=== PATIENT | male | born 1955 | race Caucasian/White ===

== ENCOUNTER 2024-12-26 09:29 | Outpatient (CLI) | payer MEDICARE, SELFPAY ==
--- OUTSIDE RECORDS SUMMARY | 2024-12-26 09:33 | XMS_ITS | Clinical Summary ---
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 90 tablet 3 10/01/19 Active gabapentin (NEURONTIN) 300 MG capsuleIndications :Type 2 diabetes mellitus without complication, without long-term current use of insulin ([facility]) TAKE 1 CAPSULE BY MOUTH ONCE DAILY IN THE EVENING 90 capsule 02/20/20 Active atorvastatin (LIPITOR) 40 MG tabletIndications: Hyperlipidemia, unspecified hyperlipidemia type Take 1 tablet (40 mg total) by mouth nightly at bedtime. at bedtime 90 tablet 3 11/18/19 Active Additional Information Patient not taking.Reported on 05/16/2023 metFORMIN (GLUCOPHAGE) 850 MG tabletIndications: Type 2 diabetes mellitus without complication, without long-term current use of insulin ([facility]) Take 1 tablet (850 mg total) by mouth 2 (two) times daily with meals. 180 tablet 3 11/18/19 Active metoprolol tartrate (LOPRESSOR) 25 MG tabletIndications: Primary hypertension Take 1 tablet (25 mg total) by mouth 2 (two) times daily. 180 tablet 3 11/18/19 Active omeprazole (PRILOSEC) 20 MG capsuleIndications :Gastroesophageal reflux disease, unspecified whether esophagitis present Take 1 capsule (20 mg total) by mouth daily. 90 capsule 3 11/18/19 Active lisinopril (PRINIVIL) 20 MG tabletIndications: Primary hypertension TAKE 2 TABLETS BY MOUTH DAILY 180 tablet 04/10/20 Active Additional Information Patient not taking.Reported on 05/16/2023 Dapagliflozin Propanediol (FARXIGA) 5 MG TabIndications:Typ e 2 diabetes mellitus without complication, without long-term current use of insulin ([facility]) Take 1 tablet by mouth daily. 90 tablet 1 05/16/20 Active Active Problems Problem Noted Date Diagnosed Date Gastroesophageal reflux dise ase, unspecified whether esophagitis present 05/03/2022 Noncompliance 09/30/2021 Osteoarthritis of both knees 02/11/2021 Multiple food allergies 02/11/2021 Degenerative disc disease, thoracic 02/11/2021 Hyperlipidemia, unspecified hyperlipidemia type 02/11/2021 Overview (05/16/2023): Quit statin Primary hypertension 02/11/2021 Type 2 diabetes mellitus wit hout complication, without long-term current use of insulin ([facility]) 02/11/2021 Overview (05/16/2023): Stopped statin and TORITO Obesity, unspecified classif ication, unspecified obesity type, unspecified whether serious comorbidity present 02/11/2021 Resolved Problems Problem Noted Date Diagnosed Date Resolved Date Preventative health care 05/03/202204/2022 Screening for prostate cancer 05/03/2022 05/08/2022 Preventative health care 02/11/2021 Screening for prostate cancer 02/11/2021 05/21/2023 Immunizations Immunization Administration Dates Next Due Influenza (Generic) 04/03/2016 PFIZER COVID-19 (ORIGINAL FO RMULATION, PURPLE CAP) mRNA, LNP-S, PF, 30 MCG/0.3 ML DOSE 06/25/2020,06/04/2020 Pneumococcal (Prevnar 13) 03/06/2021 Pneumovax 23 25 Mcg/0.5Ml Ij Inj 01/02/2017 Tdap (Generic) 04/03/2016 Family History Medical History Relation Comments MS Mother Relation Status Comments Mother Social History Tobacco Use Types Packs/Day Years Used Date Smoking Tobacco: Former Cigarettes Smokeless Tobacco: Never Alcohol Use Standard Drinks/Week Comments Yes 0 (1 standard drink = 0.6 oz pur e alcohol) 6pk a week PHQ-2 Answer Date Recorded Patient Health Questionnaire-2 Score 0 05/16/2023 Sex and Gender Information Value Date Recorded Sex Assigned at Not on file Legal Sex Male 7:11 PM CDT Gender Identity Not on file Sexual Orientation Not on file 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 [place] Not on file Not on file Not on file Last Filed Vital Signs Vital Sign Reading Time Taken Comments Blood Pressure 162/84 05/16/2023 3:03 PM ROLL ICER MACHINE Pulse 66 05/03/2022 2:41 PM ROLL ICER MACHINE Temperature - - Respiratory Rate - - Oxygen Saturation - - Inhaled Oxygen Concentration - - Weight 93 kg (205 lb) 05/16/2023 3:03 PM ROLL ICER MACHINE Height 174 cm (5' 8.5) 05/16/2023 3:03 PM ROLL ICER MACHINE Body Mass Index 30.72 05/16/2023 3:03 PM ROLL ICER MACHINE Plan of Treatment Health Maintenance Due Date Last Done Comments Colorectal Cancer Screening Colonoscopy (10 Years) 1955 Kidney Health Evaluation 1955 Diabetes: Retinopathy Eye Exam 09/26/1973 Hepatitis C 09/26/1973 Zoster Vaccines (1 of 2) 09/26/2005 Annual Medicare Wellness Visit 02/12/2022 02/11/2021 Hemoglobin A1C 11/17/2023 05/18/2023, 10/27, 05/09/2022, Additional history exists COVID-19 Vaccine ( season) 2024 06/25/2020, 06/04/2020 Lipid Panel 05/18/2024 05/18/2023, 04/27, 02/12/2021 Pneumococcal Vaccine: 50+ Years (3 of 3 - PCV20 or PCV21) 03/06/2026 03/06/2021, 01/02/2017 DTaP, Tdap and Td Vaccines (2 - Td or Tdap) 04/03/2026 04/03/2016 RSV Immunization or 60+ Years (1 - 1-dose 75+ series) 09/26/2030 Meningococcal B Vaccine Aged Out No l onger eligible based on patient's age to complete this topic Meningococcal Vaccine Aged Out No luna joseph eligible based on patient's age to complete this topic RSV Immunizations Under 20 Months Aged Out No longer eligible based on patient's age to complete this topic Procedures Procedure Name Priority Date/Time Associated Diagnosis Comments LIPID PANEL Routine 05/18/2023 7:45 AM ROLL ICER MACHINE Hyperlipidemia, unspecified hyperlipidemia type Primary hypertension Type 2 diabetes mellitus without complication, without long-term current use of insulin Obesity, unspecified classification, unspecified obesity type, unspecified whether serious comorbidity present HEMOGLOBIN, GLYCOSYLATED Routine 05/18/2023 7:44 AM ROLL ICER MACHINE Type 2 diabetes mellitus without complication, without long-term current use of insulin from Last 3 Months or Most Recently Relevant to Health Maintenance Results * (ABNORMAL) LIPID PANEL (05/18/2023 7:45 AM ROLL ICER MACHINE) [facility] CHOLESTEROL 194 0 - 199 MG/DL [facility] TRIGLYCERIDES 132 0.00 - 150.00 MG/DL [facility] Comment: NCEP REFERENCE VALUES FOR TRIGLYCERIDES: NORMAL: <150 MG/DL BORDERLINE HIGH: 150 - 199 MG/DL HIGH: 200 - 499 MG/DL VERY HIGH: >/= 500 MG/DL HDL 46 >40 MG/DL [facility] LDL (CALCULATED) 123(H) 0 - 99 MG/DL [facility] Comment: CUTOFF VALUES RECOMMENDED BY THE NATIONAL CHOLESTEROL EDUCATION PROGRAM: DESIRABLE: CHOLESTEROL <200 MG/DL LDL <100 MG/DL BORDERLINE: CHOLESTEROL 200-239 MG/DL LDL 101-159 MG/DL HIGHER RISK: CHOLESTEROL >240 MG/DL LDL >160 MG/DL, HDL <40 MG/DL NON HDL CHOLESTEROL 148 NO REFERENCE RANGE MG/DL [facility] Comment: A REASONABLE GOAL FOR NON-HDL CHOLESTEROL IS ONE THAT IS 30 MG/DL HIGHER THAN THE LDL CHOLESTEROL GOAL. CHOL/HDL RATIO 4.2 0.0 - 5.0 . [facility] Comment: IS PATIENT FASTING?->YES ON SEPTEMBER 19, 2022, [facility] CHANGED THE EQUATION FOR CALCULATING ESTIMATED LOW-DENSITY LIPOPROTEIN-CHOLESTEROL (LDL-C) FROM THE FRIEDEWALD EQUATION TO THE LETICIA/ABEL EQUATION. THIS NEW EQUATION IS ONLY VALID FOR LIPID PANELS WITH TRIGLYCERIDES < 400 MG/DL. STUDIES HAVE DEMONSTRATED THAT THIS NEW EQUATION WILL IMPROVE THE ACCURACY OF LDL-C, ESPECIALLY IN SCENARIOS WHEN LDL-C CONCENTRATIONS ARE RELATIVELY LOW (< 100 MG/DL), TRIGLYCERIDES ARE ELEVATED, OR PATIENT IS NON-FASTING. REFERENCES: - NELDA KELLY, DADA CHE, MACRINA ROSARIO, MILES CROWLEY, MILES JOHNSON, MARIBETH COX, AND VIET HALL. 2013. COMPARISON OF A NOVEL METHOD VS THE FRIEDEWALD EQUATION FOR ESTIMATING LOW-DENSITY LIPOPROTEIN CHOLESTEROL LEVELS FROM THE STANDARD LIPID PROFILE. KODY: THE JOURNAL OF THE [employer] 310 (19): [id number]. - KATELIN V, PAULO J, HANNAH A, LAY M, KAIT R, LIUDMILA E, BROOKE RS, ISABEL SR, LETICIA SS. FASTING VERSUS NONFASTING AND LOW-DENSITY LIPOPROTEIN CHOLESTEROL ACCURACY. CIRCULATION. 2018 MAY 29;137(1):10-19. 05/18/2023 7:45 AM ROLL ICER MACHINE 05/19/2023 5:17 AM ROLL ICER MACHINE Molly Barcenas DO LABORATORY Final Result Performing Organization Address City/[facility]/ZIP Co de Phone Number [facility] [address] [place] [address], * (ABNORMAL) HEMOGLOBIN, GLYCOSYLATED (05/18/2023 7:44 AM ROLL ICER MACHINE) HGB A1C 7.6(A) 4.2 - 6.5 % [facility] 05/18/2023 7:44 AM ROLL ICER MACHINE Molly Barcenas DO LABORATORY Final Result Performing Organization Address 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
[2024-12-26 09:57] LABS: Hematocrit 51.4 % (42.0-52.0); Hemoglobin 17.3 g/dL (14.0-18.0); Mean Corpuscular HGB Conc 33.7 g/dl (32-36); Mean Corpuscular Hemoglobin 30.6 pg (26-34); Mean Corpuscular Volume 91.0 fl (80-100); Platelet Count Result 206 k/mm3 (150-375); Red Blood Count 5.65 M/mm3 (4.6-6.20); White Blood Count 8.0 K/mm3 (4.5-10.0)
[2024-12-26 10:12] LABS: Hemoglobin A1C 6.9 % (<5.7)
[2024-12-26 10:19] LABS: Alanine Aminotransferase 31 U/L (6-50); Albumin Level 4.7 g/dL (3.5-5.1); Alkaline Phosphatase 66 U/L (38-126); Anion Gap 7 mmol/L (4-12); Aspartate Amino Transferase 36 U/L (17-59); Bilirubin,Total 2.4 mg/dL (0.2-1.3); Blood Urea Nitrogen 15 mg/dL (9-20); Calcium 9.7 mg/dL (8.4-10.2); Carbon Dioxide 25 mmol/L (22-30); Chloride 102 mmol/L (98-107); Cholesterol 194 mg/dL (0-200); Estimated Glomerular Filt Rate > 60; Glucose 142 mg/dL (65-110); HDL Direct 46 mg/dL; Potassium 4.9 mmol/L (3.4-5.0); Sodium 134 mmol/L (137-145); Total Protein 8.1 g/dL (6.3-8.2); Triglycerides 163 mg/dL (<150)
[2024-12-26 10:24] LABS: MALB Creatinine Ratio < 14.5 mg/g (0-30)
[2024-12-26 10:54] LABS: Prostate Specific Antigen 0.9 ng/mL (< OR = 4.0)
== END 2024-12-26 09:30 | disposition home or self-care (01) ==
PROVIDERS: PCP Nurse Practitioner Family; Visit Provider Nurse Practitioner Family
DX: Z12.5 Encounter for screening for malignant neoplasm of prostate (principal); E11.9 Type 2 diabetes mellitus without complications; I10 Essential (primary) hypertension; M19.90 Unspecified osteoarthritis, unspecified site; Z76.89 Persons encountering health services in other specified circumstances
CPT/HCPCS: 36415; 80053; 80061; 82043; 83036; 84153; 85027; G0103